=== PATIENT | female | born 1960 | race Two or more races ===

== ENCOUNTER → 2024-01-12 | Day surgery (SDC) | payer MEDICAID ==
[2024-01-09 13:14] LABS: Basophils # (auto) 0 10 ^3/uL (0-0.2); Basophils % (auto) 0.7 % (0.0-2.0); Eosinophils # (auto) 0.2 10 ^3/uL (0-0.8); Eosinophils % (auto) 3.7 % (0.0-7.0); Hemoglobin 13.1 g/dL (12.2-16.2); Lymphocytes # (auto) 1.7 10 ^3/uL (0.4-5.4); Lymphocytes % (auto) 27.6 % (10.0-50.0); Mean Corpuscular Hemoglobin 30.2 pg (28.0-32.0); Mean Corpuscular Hgb Conc. 33.5 g/dL (32.0-36.0); Monocytes # (auto) 0.6 10 ^3/uL (0-1.3); Monocytes % (auto) 9.6 % (0.0-12.0); Neutrophils # (auto) 3.7 10 ^3/uL (1.6-8.6); Neutrophils % (auto) 58.4 % (37.0-80.0); Platelet Count (auto) 414 10^3/uL (140-450); Red Blood Cells 4.33 10^6/uL (4.0-5.20); White Blood Cell 6.3 10^3/uL (4.4-10.8)
[2024-01-09 13:32] LABS: Alanine Aminotransferase 36 U/L (7-40); Albumin 4.6 g/dL (3.2-4.8); Alkaline Phosphatase 87 U/L (46-116); Anion Gap 6 (5-15); Aspartate Aminotransferase 23 U/L (13-40); BUN/Creatinine Ratio 14.1 (10.0-20.0); Blood Urea Nitrogen 14 mg/dL (9-23); Calcium 9.7 mg/dL (8.7-10.4); Carbon Dioxide 27 mmol/L (20-31); Chloride 106 mmol/L (98-107); Glucose 92 mg/dL (74-106); Potassium 3.9 mmol/L (3.5-5.1); Sodium 139 mmol/L (136-145)
[2024-01-09 13:34] LABS: Bilirubin, Total 0.5 mg/dL (0.2-1.0)
[2024-01-09 13:36] LABS: INR 0.96 (0.9-1.15); Partial Thromboplastin Time 28.4 SEC (24.5-34.5); Prothrombin Time 10.2 sec (9.3-11.8)
[2024-01-09 13:39] LABS: Urine Bacteria FEW /hpf (None Seen); Urine Blood Negative /uL (Negative); Urine Clarity Turbid (Clear); Urine Color Light-Yellow (Yellow); Urine Protein, UAD Negative (Negative); Urine Specific Gravity 1.016 (1.001-1.035); Urine Urobilinogen Normal (Negative); Urine WBC 4 /hpf (0 - 5); Urine pH 6.5 (5.0-9.0)
[~2024-01-12] VITALS: Ht 162.6 cm; Wt 53.5 kg
[~2024-01-12] MED LIST: BUPIVACAINE 0.25% INJ 50ML VIAL ONE; DexAMETHasone SOD PHOS 10MG/1ML VIAL INJ ONE; FER325T PO; LIDOCAINE 1% HCL (LOCAL ANESTH.) INJ 20ML MDV ONE; LISI40TA16 PO; MEPERIDINE HCL (25 MG/ML) 1ML VIAL ONE; MIDAZOLAM HCL 2MG/2ML 2ml VIAL (1mg/ml) ONE; PROPOFOL 10 MG/ML 20 ML IV ONE; ceFAZolin 2 GM/D5W100ml 100 ML IV ONE; fentaNYL CITRATE 100 MCG/2 ML VL ONE
[2024-01-12] MEDS: BUPIVACAINE 0.5% INJ 50ML VIAL IJ ONE (08:13)
[2024-01-12 08:32] VITALS: PULSE 72; RESP 13; O2SAT 100
[2024-01-12 09:02] VITALS: BP 175/86; PULSE 79; RESP 12; O2SAT 100
--- NOTE | 2024-01-15 06:15 | DVHOP2 ---
Operative Report - 2 Report Details Date: 01/15/24 Preop Diagnosis: Left hand mass Postop Diagnosis: Left hand mass Surgeon: nErique Mina MD Public Relations Intern: Pepe SALTER Anesthesiologist: Justo HOPKINS Anesthesia: Mac Consent: The patient was informed of the risks and benefits of the procedure. These include but are not limited to complications of anesthesia, postoperative infection, incomplete relief of symptoms, recurrence of symptoms, damage to blood vessels, nerves and tendons, deep venous thrombosis, pulmonary embolism and possible need for repeat surgery in the future. Estimated Blood Loss: 2 cc Findings: 3x 2 cm mass at base of left small finger Name of Procedure Performed Left hand mass removal, flexor tendon debridement Procedure Details Procedure Details: After administering appropriate antibiotics and anesthesia, the upper extremity was prepped and draped in the usual standard fashion. The arm was exsanguinated with Esmarch, and the tourniquet inflated to 250 mmHg. A transverse incision was made over left small finger metacarpal base mass. Dissection was carried down to the mass sheath with care taken to identify and protect the neurovascular bundles. Patient was noted to have a mass off the flexor sheath which was removed. Culture taken as well. sheath was debrided along with synovectomy. After irrigating out the wound with copious amounts of sterile saline, the skin was closed with 3-0 nylon simple interrupted sutures. The patient was sent to the recovery room in good condition, having tolerated the procedure well. Specimen: Left hand mass Condition Good Disposition Home ENRIQUE MINA MD Jan 15, 2024 06:15
== END | disposition home or self-care (01) ==
LOC: SUR 06:14
PROVIDERS: ATTEND Orthopaedic Surgery Adult Reconstructive Orthopaedic Surgery
DX: R22.32 Localized swelling, mass and lump, left upper limb (principal); L72.0 Epidermal cyst; F17.210 Nicotine dependence, cigarettes, uncomplicated; I10 Essential (primary) hypertension; Z98.890 Other specified postprocedural states; Z98.891 History of uterine scar from previous surgery; Z96.652 Presence of left artificial knee joint; Z79.899 Other long term (current) drug therapy
CPT/HCPCS: 11423; 36415; 80053; 81001; 85025; 85610; 85730; 87070; 87075; 87205; 88305; J1100; J2003; J2175; J2250; J2704; J3010; J3490